=== PATIENT | female | born 1970 | race Caucasian/White ===

== ENCOUNTER 2017-01-02 10:12 | Outpatient (CLI) ==
--- NOTE | 2017-01-02 10:59 | DI ---
Examination: Two radiographic images of the chest. Comparison: 07/20/2016. Reason for study: Follow-up x-ray. FINDINGS: Similar appearing granulomas disease is seen within the lung parenchyma. No pneumothorax, pleural ef fusion, or focal consolidation. The cardiac silhouette is not enlarged. Impression: No acute cardiopulmonary findings.
== END 2017-01-02 10:13 | disposition home or self-care (01) ==
LOC: RAD 10:12
PROVIDERS: ATTEND Family Medicine
DX: R93.8 Abnormal findings on diagnostic imaging of other specified body structures (principal)

== ENCOUNTER 2018-04-21 16:11 | Outpatient (CLI) ==
--- NOTE | 2018-04-22 08:20 | DI ---
EXAM: Left toe first digit three-view HISTORY: Left toe pain COMPARISON: None FINDINGS: No fracture or dislocation. The joints are normal. Tiny plantar calcaneal spur. IMPERSSION: No fracture or dislocation
== END 2018-04-21 16:12 | disposition home or self-care (01) ==
LOC: RAD 16:11
PROVIDERS: ATTEND Family Medicine
DX: M79.675 Pain in left toe(s) (principal)
CPT/HCPCS: 36415; 84550; 85651; 86140